=== PATIENT | male | born 1960 | race Caucasian/White ===

== ENCOUNTER → 2017-06-12 | Outpatient (CLI) | payer OTHER | LOC: BRMIMAGING 09:11 | PROVIDERS: ATTEND Internal Medicine | DX: M41.86 Other forms of scoliosis, lumbar region (principal); M19.042 Primary osteoarthritis, left hand; M19.041 Primary osteoarthritis, right hand; M51.25 Other intervertebral disc displacement, thoracolumbar region | CPT/HCPCS: 72114-PO; 73130-PO ==